=== PATIENT | female | born 2000 | race African-American/Black ===

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

== ENCOUNTER 2019-01-29 17:56 | Emergency (ER) | payer MEDICAID ==
[~2019-01-29] VITALS: Ht 160 cm; Wt 117.0 kg
[2019-01-29 18:09] VITALS: BP 116/62
== END 2019-01-31 07:43 | disposition home or self-care (01) ==
LOC: ER 17:56
DX: S90.821A Blister (nonthermal), right foot, initial encounter (principal); L08.9 Local infection of the skin and subcutaneous tissue, unspecified; X58.XXXA Exposure to other specified factors, initial encounter; Y93.9 Activity, unspecified; Y92.9 Unspecified place or not applicable
CPT/HCPCS: 99283

== ENCOUNTER 2021-11-03 12:41 | Emergency (ER) | payer MEDICAID ==
[~2021-11-03] VITALS: Ht 160 cm; Wt 123.0 kg
[2021-11-03] MEDS ORDERED: IBUPROFEN 600MG TABLET PO ONE (13:15)
[2021-11-03 14:39] VITALS: BP 141/81
[2021-11-03] MEDS ORDERED: IBUP-2029 MT (15:48)
[2021-11-03] MEDS ORDERED: TUSSL MT (15:48)
== END 2021-11-03 16:06 | disposition home or self-care (01) ==
LOC: ER 12:41
DX: J40 Bronchitis, not specified as acute or chronic (principal); R00.0 Tachycardia, unspecified; Z20.822 Contact with and (suspected) exposure to COVID-19
CPT/HCPCS: 71045; 87426; 87804; 93005; 99285; C9803

== ENCOUNTER 2021-12-08 18:42 | Emergency (ER) | payer MEDICAID ==
[~2021-12-08] VITALS: Ht 160 cm; Wt 126.0 kg
[~2021-12-08 18:42] MED LIST: IBUP-2029 MT; TUSSL MT
[2021-12-08 19:07] VITALS: BP 141/98
== END 2021-12-08 22:15 | disposition home or self-care (01) ==
LOC: ER 18:42
DX: R04.2 Hemoptysis (principal); R05.9 Cough, unspecified; R94.31 Abnormal electrocardiogram [ECG] [EKG]; K21.9 Gastro-esophageal reflux disease without esophagitis; J40 Bronchitis, not specified as acute or chronic
CPT/HCPCS: 71045; 81025; 93005; 99283

== ENCOUNTER 2022-09-30 11:57 | Emergency (ER) | payer MEDICAID ==
[~2022-09-30] VITALS: Ht 160 cm; Wt 118.0 kg
[2022-09-30 12:19] VITALS: BP 122/78
[2022-09-30] MEDS ORDERED: IBUP-2029 MT (15:13)
[2022-09-30] MEDS ORDERED: IBUPROFEN 600MG TABLET PO ONE (15:15)
== END 2022-09-30 16:09 | disposition home or self-care (01) ==
LOC: ER 12:00
DX: S06.0X0A Concussion without loss of consciousness, initial encounter (principal); J45.909 Unspecified asthma, uncomplicated; W01.0XXA Fall on same level from slipping, tripping and stumbling without subsequent striking against object, initial encounter; Y93.89 Activity, other specified; Y92.89 Other specified places as the place of occurrence of the external cause; Y99.8 Other external cause status
CPT/HCPCS: 81025; 99282

== ENCOUNTER 2022-10-24 17:40 | Emergency (ER) | payer MEDICAID ==
[~2022-10-24] VITALS: Ht 160 cm; Wt 120.2 kg
[2022-10-24 18:13] VITALS: BP 118/76
[2022-10-24 18:41] LABS: BASOPHILS % 0.4 % (0.0-2.0); EOSINOPHILS % 0.6 % (0.0-5.0); HEMATOCRIT. 31.2 % (36.0-48.0); HEMOGLOBIN. 9.8 g/dL (12.0-16.0); LYMPHOCYTES % 28.4 % (20.0-50.0); MEAN CORPUSCULAR HEMOGLOBIN 21.8 pg (28.0-32.0); MEAN CORPUSCULAR VOLUME 69.1 fL (81.0-99.0); MEAN PLATELET VOLUME 7.9 fl (7.4-10.4); MONOCYTES % 6.8 % (2.0-8.0); NEUTROPHILS % 63.8 % (40.0-76.0); PLATELET 395 x1000/uL (130-400); RED BLOOD CELL COUNT 4.51 mill/uL (4.2-5.4)
[2022-10-24 18:49] LABS: CHLORIDE 107 mEq/L (98-107)
[2022-10-24 19:06] LABS: PLATELET ESTIMATE NORMAL
[2022-10-25 00:20] LABS: D-DIMER < 0.19 mg/L FEU (<0.50); PARTIAL THROMBOPLASTIN TIME 31.6 sec (23.4-31.0)
[2022-10-25 00:30] LABS: HCG SCREEN NEGATIVE
== END 2022-10-25 02:00 | disposition home or self-care (01) ==
LOC: ER 17:40
DX: R04.2 Hemoptysis (principal); J45.909 Unspecified asthma, uncomplicated
CPT/HCPCS: 36415; 71045; 80053; 84484; 84703; 85025; 85379; 93005; 99285